=== PATIENT | male | born 1995 | race African-American/Black ===

== ENCOUNTER 2019-09-04 04:26 | Emergency (ER) | payer SELFPAY ==
[~2019-09-04] VITALS: Ht 180.3 cm; Wt 68.0 kg
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
[2019-09-04 05:40] VITALS: BP 128/82
--- NOTE | 2019-09-04 05:40 | NUR ---
Patient discharged to home in stable condition. Written and verbal after care instructions given. Patient verbalizes understanding of instruction. Pt ambulatory with a steady gait
== END 2019-09-04 05:40 | disposition home or self-care (01) ==
LOC: ER 04:26
DX: S62.392A Other fracture of third metacarpal bone, right hand, initial encounter for closed fracture (principal); W05.1XXA Fall from non-moving nonmotorized scooter, initial encounter; Y93.89 Activity, other specified; Y92.89 Other specified places as the place of occurrence of the external cause; Y99.8 Other external cause status
CPT/HCPCS: 73110